=== PATIENT | female | born 1940 | race Hispanic/Latino ===

== ENCOUNTER 2016-06-05 16:14 | Inpatient (IN) | payer MEDICARE, BC ==
[2016-06-05] MEDS ORDERED: Albuterol-Ipratrop 3 mg / 0.5 (3 ml) UD IH STA (17:02)
[2016-06-05] MEDS ORDERED: Azithromycin 500MG/NS 250ml 250 ML IVPB STA (17:05)
[2016-06-05] MEDS ORDERED: cefTRIAXone 1 gm 100 ML IV STA (17:06)
--- NOTE | 2016-06-05 17:43 | ED PDOC ---
Arrival/HPI - General Chief Complaint: Shortness Of Breath Time Seen by Provider: 06/05/16 16:50 - History of Present Illness Narrative History of Present Illness (Text): 06/05/16 17:36 76-year-old female with a history of COPD and smoking, presents the emergency department with progressively worsening shortness of breath. Patient states that this feels similar to her previous COPD exacerbation symptoms. She states that she takes nebulizer treatments at home multiple times a day, but they have been helping her less. Denies fevers or chills, denies dyspnea on exertion, denies chest pain. No other complaints. Past Medical History - Provider Review Nursing Documentation Reviewed: Yes - Infectious Disease Hx of Infectious Diseases: None - Tetanus Immunization Tetanus Immunization: Unknown - Cardiac Hx Cardiac Disorders: Yes (CAD) Hx Congestive Heart Failure: Yes Hx Hypertension: Yes - Pulmonary Hx Chronic Obstructive Pulmonary Disease (COPD): Yes - Neurological Hx Neurological Disorder: No Hx Alzheimer's Disease: No HX Cerebrovascular Accident: No Hx Dementia: No Hx Dizziness: Yes (SYNCOPE) Hx Meningitis: No Hx Migraine: No Hx Parkinson's Disease: No Hx Seizures: No Hx Transient Ischemic Attacks (TIA): No - HEENT Hx HEENT Disorder: Yes Hx Blind: No Hx Cataracts: Yes (removed) Hx Deafness: No Hx Difficulty Chewing: No Hx Epistaxis: No Hx Glaucoma: No Hx Macular Degeneration: No - Renal Hx Renal Disorder: Yes Hx Dialysis: No Hx Kidney Stones: No Hx Neurogenic Bladder: No Hx Pyelonephritis: No Hx Renal Cancer: No Hx Renal Failure: No - Endocrine/Metabolic Hx Endocrine Disorders: No Hx Diabetes Mellitus Type 1: No Hx Diabetes Mellitus Type 2: No Hx Hypothyroidism: No - Hematological/Oncological Hx Blood Disorders: No Hx AIDS: No Hx Anemia: No Hx Cancer: No Hx Chemotherapy: No Hx Cirrhosis: No Hx Hepatitis A: No Hx Hepatitis B: No Hx Hepatitis C: No Hx Metastasis: No Hx Shingles: No Hx Unexplained Bleeding: No - Integumentary Hx Dermatological Disorder: No Hx Basal Cell Carcinoma: No Hx Eczema: No Hx Melanoma: No Hx Psoriasis: No Hx Squamous Cell Carcinoma: No - Musculoskeletal/Rheumatological Hx Musculoskeletal Disorders: Yes Hx Arthritis: Yes Hx Back Pain: No Hx Degenerative Joint Disease: No Hx Falls: Yes Hx Fractures: Yes (right foot, left arm and hand, right shoulder) Hx Gout: No Hx Herniated Disk: No Hx Osteoarthritis: No Hx Osteomyelitis: No Hx Osteoporosis: No Hx Rhabdomyolysis: No Hx Spinal Stenosis: No Other/Comment: fell over dog fx left hand and left arm, fell oob fx r ft casted , clavicular fx, shoulder contusion - Gastrointestinal Hx Gastrointestinal Disorders: Yes Hx Colostomy: No Hx Crohn's Disease: No Hx Diverticulitis: Yes Hx Gall Bladder Disease: No Hx Gastroesophageal Reflux: Yes Hx Gastrointestinal Ulcer: No Hx Ileostomy: No Hx Liver Failure: No Hx Pancreatitis: No HX Swallowing Problems: No - Genitourinary/Gynecological Hx Genitourinary Disorders: No Hx Hematuria: No Hx Incontinence: No Hx Reproductive Disorders: No Hx Sexually Transmitted Diseases: No Hx Urinary Tract Infection: No - Psychiatric Hx Psychophysiologic Disorder: No Hx Anxiety: Yes (xanax) Hx Bipolar Disorder: No Hx Depression: No Hx Emotional Abuse: No Hx Hallucinations: No Hx Panic Disorder: No Hx Post Traumatic Stress Disorder: No Hx Psychosis: No Hx Physical Abuse: No Hx Schizophrenia: No Hx Sexual Abuse: No Hx Substance Use: No - Past Surgical History Past Surgical History: Non-Contributing - Surgical History Hx Appendectomy: Yes Hx Cardiac Catheterization: Yes Hx Cholecystectomy: Yes Hx Coronary Stent: Yes Hx Open Heart Surgery: Yes (1 stent 08/30) Other/Comment: D&C 20years ago - Anesthesia Hx Anesthesia Reactions: No Hx Malignant Hyperthermia: No - Suicidal Assessment Feels Threatened In Home Enviroment: No Family/Social History Family/Social History: Unknown Family HX Smoking Status: Heavy Smoker > 10 Cigarettes Daily Hx Alcohol Use: No Hx Substance Use: No Hx Substance Use Treatment: No Allergies/Home Meds Allergies/Adverse Reactions: Allergies No Known Allergies Allergy (Verified 06/05/16 16:39) Home Medications: Home Meds Medication Instructions Recorded Confirmed Ergocalciferol (Vitamin D2) 100,000 iu PO 2XW #0 09/15/11 12/27/15 [Vitamin D2] Clopidogrel [Plavix] 75 mg PO DAILY 08/05/12 12/27/15 ALPRAZolam [Xanax] 0.25 mg PO PRN PRN 07/12/15 12/27/15 Physical Exam - Physical Exam Narrative Physical Exam (Text): 06/05/16 17:38 - Review of Systems Constitutional: Normal. absent: Fatigue, Weight Change, Fevers Eyes: Normal ENT: denies sore throat, denies tristhmus Respiratory: Shortness of breath. absent: Sputum Cardiovascular: absent: Chest Pain, Palpitations, Syncope Gastrointestinal: Normal. absent: Abdominal Pain, Diarrhea, Nausea, Vomiting Genitourinary: Normal. absent: Dysuria, Frequency, Hematuria, vaginal bleeding Musculoskeletal: Normal. absent: Arthralgias, Back Pain, Neck Pain Skin: no rashes, no erythema Neurological: absent: Focal Weakness Endocrine: Normal Hemo/Lymphatic: Normal Psychiatric: No suicidal or homicidal ideations Physical exam Patient appears age appropriate in no distress, speaking full sentences without difficulty - Systems Exam Head: Present: Atraumatic, Normocephalic Pupils: Present: PERRL Extroacular Muscles: Present: EOMI Conjunctiva: Present: Normal Mouth: Present: Moist Mucous Membranes Neck: Present: Normal Range of Motion. No: MIDLINE TENDERNESS, Paraspinal Tenderness Respiratory/Chest: Present: Expiratory wheezing, Good Air Exchange. No: Respiratory Distress, Accessory Muscle Use, Tachypneic Cardiovascular: Present: Regular Rate and Rhythm, Normal S1, S2, Peripheal Pulses Present. No: Murmurs Abdomen: Present: Normal Bowel Sounds. No: Tenderness, Distention, Peritoneal Signs, Rebound, Guarding Back: Present: Normal Inspection. No: Midline Tenderness, Paraspinal Tenderness Upper Extremity: Present: Normal Inspection. No: Cyanosis, Edema Lower Extremity: Present: Normal Inspection. No: Edema Neurological: Present: GCS=15, Speech Normal, cranial nerves II through XII fully intact with no cerebellar abnormality, neurosensory fully intact. No focal neurological deficits. Skin: Present: Warm, Dry, Normal Color. No: Rashes Lymphatic: Present: OX3, NI, NC Psychiatric: Present: Alert, Oriented x 3, Normal Insight, Normal Concentration Vital Signs Reviewed: Yes Vital Signs Temp Pulse Resp BP Pulse Ox 06/05/16 19:19 19 97 06/05/16 16:38 98.1 F 86 19 131/80 96 Temperature: Afebrile Blood Pressure: Normal Pulse: Regular Respiratory Rate: Normal Appearance: Positive for: Well-Appearing Pain Distress: None Mental Status: Positive for: Alert and Oriented X 3 Medical Decision Making ED Course and Treatment: 06/05/16 17:43 76-year-old female with wheezing, states feels similar to her previous COPD exacerbation symptoms. Case discussed with Dr. Garcia, asked to admit to his service for further workup or management. Patient aware of and agrees with plan. EKG interpreted by ER physician. Normal sinus. No ST-segment elevations. Normal intervals. Chest xray interpreted by ED physician shows no pneumothorax, no cardiomegaly, no infiltrates - RAD Interpretation Radiology Orders: 06/05/16 17:04 CHEST PORTABLE [RAD] Stat - Medication Orders Current Medication Orders: Albuterol/Ipratropium (Duoneb 3 Mg/0.5 Mg (3 Ml) Ud) 3 ml IH Q4H PRN PRN Reason: Shortness of Breath Stop: 06/05/16 21:48 Albuterol/Ipratropium (Duoneb 3 Mg/0.5 Mg (3 Ml) Ud) 3 ml IH TIDRESP LUBA Alprazolam (Xanax) 0.25 mg PO Q6 PRN; Protocol PRN Reason: Anxiety Stop: 06/13/16 00:01 Aspirin (Ecotrin) 81 mg PO DAILY LUBA Atorvastatin Calcium (Lipitor) 20 mg PO HS LUBA Mirtazapine (Remeron) 15 mg PO HS LUBA Oxycodone HCl (Oxycodone Immediate Release Tab) 30 mg PO QID PRN PRN Reason: Pain, moderate (4-7) Pantoprazole Sodium (Protonix Ec Tab) 40 mg PO ACB LUBA Discontinued Medications Albuterol/Ipratropium (Duoneb 3 Mg/0.5 Mg (3 Ml) Ud) 3 ml IH STAT STA Stop: 06/05/16 17:03 Last Admin: 06/05/16 18:00 Dose: 3 ML Azithromycin (Zithromax 500mg In Ns) 250 mls @ 167 mls/hr IVPB STAT STA PRN Reason: Protocol Stop: 06/05/16 18:34 Last Admin: 06/05/16 19:27 Dose: 167 MLS/HR eMAR Start Stop Document 06/05/16 19:27 EKEOO (Rec: 06/05/16 19:27 EKEOO [facility] [place] [id number]) Intravenous Solution Start Date 06/05/16 Start Time 19:27 Ceftriaxone Sodium (Rocephin 1 Gram Ivpb) 100 mls @ 200 mls/hr IV STAT STA PRN Reason: Protocol Stop: 06/05/16 17:35 Last Admin: 03/20/17 18:00 Dose: 200 MLS/HR eMAR Start Stop Document 06/05/16 18:00 REED (Rec: 06/05/16 18:41 REED [id number]) Intravenous Solution Start Date 06/05/16 Start Time 18:00 Methylprednisolone (Solu-Medrol) 125 mg IVP STAT STA Stop: 06/05/16 17:03 Last Admin: 06/05/16 18:00 Dose: 125 MG IVP Administration Document 06/05/16 18:00 [facility] (Rec: 06/05/16 18:40 REED [id number]) Charges for Administration # of IVP Administrations 1 Disposition/Present on Arrival - Present on Arrival Any Indicators Present on Arrival: No History of DVT/PE: No History of Uncontrolled Diabetes: No Urinary Catheter: No History of Decub. Ulcer: No History Surgical Site Infection Following: None - Disposition Have Diagnosis and Disposition been Completed?: Yes Diagnosis: COPD (chronic obstructive pulmonary disease) Disposition: HOSPITALIZED Disposition Time: 16:36 Patient Plan: Admission Patient Problems: Current Active Problems Problem Status Diagnosed COPD (chronic obstructive pulmonary disease) Acute COPD exacerbation Acute Carboxyhemoglobinemia Acute Chest pain Acute Congestive heart failure Acute Condition: FAIR
[2016-06-05] MEDS ORDERED: Albuterol-Ipratrop 3 mg / 0.5 (3 ml) UD IH PRN (17:47)
[2016-06-05 18:20] LABS: ADD MANUAL DIFF? NO
[2016-06-05 18:26] LABS: BASO # 0.02 K/mm3 (0.0-2.0); BASO % 0.3 % (0.0-3.0); EOS # 0.1 (0.0-0.7); EOS % 1.2 % (1.5-5.0); GRAN # 5.71 (1.4-6.5); GRAN % 76.6 % (50.0-68.0); HEMATOCRIT 36.3 % (36.0-48.0); LYMPH # 1.1 (1.2-3.4); LYMPH % 15.1 % (22.0-35.0); MEAN CELL VOLUME 94.8 fL (80.0-105.0); MEAN CORPUSCULAR HGB CONC 31.7 g/dl (31.0-37.0); MEAN PLATELET VOLUME 9.7 fl (7.0-11.0); MONO # 0.5 (0.1-0.6); MONO % 6.8 % (1.0-6.0); PLATELET COUNT 299 10^3/uL (120.0-450.0); WHITE BLOOD COUNT 7.5 10^3/ul (4.5-11.0)
[2016-06-05 18:50] LABS: ALB/GLOB RATIO 1.4 (1.1-1.8); ALKALINE PHOSPHATASE 78 U/L (38-133); ALT/SGPT 24 U/L (7-56); AST/SGOT 39 U/L (15-39); BILIRUBIN,TOTAL 0.4 mg/dL (0.2-1.3); BLOOD UREA NITROGEN 17 mg/dL (7-21); CALCIUM 9.2 mg/dL (8.4-10.5); CARBON DIOXIDE 35 mmol/L (21-33); CHLORIDE 99 mmol/L (98-107); GFR AFRICAN-AMERICAN > 60; GLUCOSE,RANDOM 97 mg/dL (70-110); SODIUM 141 mmol/L (132-148); TOTAL PROTEIN 6.8 g/dL (5.8-8.3)
[2016-06-05 19:02] LABS: TROPONIN I < 0.01 ng/mL
[2016-06-05 19:08] LABS: INR 0.99 (0.93-1.08); PARTIAL THROMBOPLASTIN TIME 25.2 Seconds (23.7-30.8)
[2016-06-05] MEDS ORDERED: oxyCODONE 30 mg Immediate Release Tab PO PRN (19:23)
[2016-06-05 23:33] VITALS: BMI 25.9
[2016-06-06] MEDS ORDERED: levoFLOXacin 500 MG TAB PO STA (07:19)
[2016-06-06] MEDS: Albuterol-Ipratrop 3 mg / 0.5 (3 ml) UD IH SCH ×3 (08:01→20:29)
[2016-06-06] MEDS: Pantoprazole 40 mg EC Tab PO SCH (08:29)
[2016-06-06] MEDS ORDERED: MethylPREDNISolone 40 mg Vial IVP SCH (10:00)
[2016-06-06] MEDS: MethylPREDNISolone 40 mg Vial IVP SCH ×2 (10:14→22:08)
[2016-06-06] MEDS: POLYETHYLENE GLYCOL 3350 17 GM/Dose PACKET PO SCH ×2 (10:14→17:28)
--- NOTE | 2016-06-06 10:50 | RAD ---
HISTORY: cough COMPARISON: Comparison is made to the previous exam dated 12/22/2015 FINDINGS: LUNGS: Hyperinflation of the lungs is again noted. Prominent reticular opacities are again seen. No evidence of new infiltrate or consolidation in the lungs. PLEURA: No significant pleural effusion identified, no pneumothorax apparent. CARDIOVASCULAR: The cardiac silhouette is mildly enlarged. OSSEOUS STRUCTURES: No significant abnormalities. VISUALIZED UPPER ABDOMEN: Normal. OTHER FINDINGS: None. IMPRESSION: No significant interval change compared to the previous study.
--- NOTE | 2016-06-06 12:11 | CON ---
DATE: 06/06/2016 CHIEF COMPLAINT AND HISTORY OF PRESENT ILLNESS: This is a 76-year-old female who was coming into the hospital because she has been having shortness of breath. The patient is homebound. She has advanc ed COPD and is O2 dependent. She has not been able to ambulate well because of her shortness of ursula th. She was advised by to come into the ER last month, but was not able to do so. I spoke wit h the patient's daughter at length, but the patient has been refusing. She is currently an active sm oker. She has shortness of breath with minimal exertion. She denies any chest pain. She does have a cough that is nonproductive. She has no nausea. She has no fevers or chills. She has no chest pa in. She has no focal weakness in the arms or the legs. She is going to be admitted to the hospital for further management. She says she is very fatigued. She does not have a good appetite. She has been slowly declining. REVIEW OF SYSTEMS: All other review of symptoms are within normal limits except as mentioned. ALLERGIES: No known drug allergies. HOME MEDICATIONS: Plavix, Xanax, oxycodone, vitamin D. PAST MEDICAL HISTORY: 1. COPD, O2 dependent. 2. Pulmonary nodules, multiple. 3. Anxiety. 4. Depression. 5. Coronary artery disease. 6. Right carotid artery stenosis with stenting. 7. Neuropathy. 8. Arthritis. PAST SURGICAL HISTORY: Appendectomy and CABG. SOCIAL HISTORY: She is a smoker. She smokes a half a pack per day. She retired from the [employer]. She has 2 children. FAMILY HISTORY: Noncontributory. PHYSICAL EXAMINATION: VITAL SIGNS: Her temperature is 98.6, pulse of 98, blood pressure is 140/70, respirations 20, O2 sat uration is 95%, height is 5 feet, weight is 133 pounds, BMI is 26. GENERAL: Patient lying in bed, flat, and in no apparent distress. HEAD AND NECK EXAM: Atraumatic, normocephalic. Conjunctivae are pink. Throat clear and mouth with moist mucosa. Oropharynx benign. EYES: Extraocular movements are intact. PERRLA. NECK: Supple. No JVD, thyromegaly, or adenopathy. No bruits. HEART: S1 and S2 regular rate and rhythm. No murmurs, rubs, or gallops. LUNGS: She has decreased bilateral air entry. There is mild wheezing. No rales or rhonchi. ABDOMEN: Soft, nontender, nondistended. Bowel sounds are positive in all quadrants. No rebound. No hepatosplenomegaly. EXTREMITIES: No cyanosis, clubbing, or edema. NEURO: No facial asymmetry, tongue is midline, no uvula deviation. Power is 5/5 in upper extremity and 5/5 in lower extremity. Sensation is normal in upper extremity and lower extremity. PSYCH: Awake, alert, oriented x3. No anxiety or depression symptoms. Good insight. Normal affec t. : No CVA tenderness VASCULAR: 2+ pulses in carotid and pedal pulses. SKIN: No erythema or abnormal nodules noted. SPINE: Normal curvature. LYMPHADENOPATHY: No anterior cervical or posterior cervical adenopathy. No inguinal adenopathy. LABORATORY DATA: White count of 7.5, hemoglobin 11.5, INR is 0.9. Sodium is 141, potassium is 4.0. Troponin is 0.01. EKG shows no ST elevations, sinus rhythm. Chest x-ray done shows no signs of infiltrates. ASSESSMENT: 1. Acute chronic obstructive pulmonary disease exacerbation. 2. Frailty. 3. Coronary artery disease. 4. Depression. 5. Anxiety. 6. Chronic obstructive pulmonary disease, home oxygen dependent. 7. Neuropathy. 8. Osteoarthritis. 9. Peripheral arterial disease. 10. Dyslipidemia. 11. Smoking. PLAN: The patient is admitted to the hospital. She is currently on nebulizer treatments. She is re ceiving aspirin. She is going to need evaluation by Dr. Carlos, who is her youth services librarian. The p atshama is on Remeron, this will be continued. She was given steroids yesterday. She is on Xanax. S he is going to be on oxycodone for pain. The patient is on a heart healthy diet. She is going to ne ed physical therapy for evaluation. Most likely she is going to need subacute rehab. I will speak t o the patient's daughter to give her an update on the patient's diagnosis and plan of care. With adv anced COPD, her overall prognosis is guarded. I am not sure what her advanced directives are, but I believe I spoke to her about her advanced directives. Will get palliative care evaluation to be done . Overall, prognosis is guarded. Gerardo Garcia MD cc: [id number] TT: 06/06/2016 12:10:12 Confirmation # [id number] Dictation # [id number] mn
[2016-06-06] MEDS ORDERED: Tiotropium 18 mcg Cap For Inhalation IH SCH (12:15)
--- NOTE | 2016-06-06 12:27 | CON ---
DATE: 06/06/2016 REASON FOR CONSULTATION: Chronic obstructive pulmonary disease. REFERRING PHYSICIAN: Dr. Gerardo Garcia. HISTORY OF PRESENT ILLNESS: The patient is a 76-year-old female with past medical history significant for advanced chronic obstructive pulmonary disease, on home oxygen, positive extensive smoking history--still smokes, coronary artery disease, hypertension, small pulmonary nodules, who presents to [facility] with a 3-day history of worsening shortness of breath at rest, dyspnea on exertion, and cough. The patient denies significant sputum production. The patient also denies chest pain, coughing up of blood, or chest pain -- made worse with deep respirations. There is no history of temperatures , chills or infectious exposure. There is no history of night sweats, weight loss or appetite change prior to the above events. No history of leg or calf pains. No history of syncope or diaphoresis. No history of recent travel or trauma. REVIEW OF SYSTEMS: No history of nausea, vomiting or diarrhea. No acute urinary symptoms. No new neurologic complaints. Rest of the review of systems is negative. ALLERGIES: No known allergies. SOCIAL HISTORY: Positive for extensive tobacco usage--still smokes. No alcohol. FAMILY HISTORY: No inheritable diseases. HOME MEDICATIONS: Include risperidone, prednisone, oxycodone, Xopenex, Remeron , Plavix, Lipitor, aspirin, Xanax. PHYSICAL EXAMINATION: GENERAL: The patient appears comfortable at rest. She is not short of breath. VITAL SIGNS: Temperature is 98.6, pulse is approximately 80, respirations 18, blood pressure 140/70. Oxygen saturation on nasal cannula is 95-96%. HEENT: Normocephalic, atraumatic. NECK: No JVD. CARDIOVASCULAR: Systolic ejection murmur at the lower left sternal border. No S3 gallop. LUNGS: Decreased breath sounds at the bases. Minimal rhonchi. Minimal wheezing. EXTREMITIES: Mild edema. No cyanosis, no clubbing. Calves are nontender to palpation. GASTROINTESTINAL: Abdomen is soft, nontender, nondistended. Bowel sounds are positive. SKIN: No acute rash. NEUROLOGIC: Limited at the present time. PERTINENT LABORATORY DATA: Chest x-ray was done and reviewed. It is not significantly changed from the previous films. CBC: White count 7.5, hemoglobin 11.5, hematocrit 36.3, platelets of 299. Complete metabolic profile : Carbon dioxide 35. Rest of the metabolic profile is within normal limits. IMPRESSION: 1. Acute bronchitis. 2. Advanced chronic obstructive pulmonary disease, on home oxygen. 3. Coronary artery disease. 4. Mild anemia. PLAN: The patient presents to [facility] with a 3-day history of worsening pulmonary symptoms. I did review the x-ray as above. The most recent film is not significantly changed from the previous films. On physical exam, there is mild bronchospasm present. However, there is no significant alveolar arterial gradient. Oxygen saturation on nasal cannula is 95-96%. I will continue with the current nebulizer treatments and decrease the intravenous steroids this morning. Given her age and above diagnoses, I will also start the patient on oral antibiotic therapy. There are no temperatures noted. There is no leukocytosis. The patient does feel better this morning, and is clinically improved -- compared to the past few days. Additional pulmonary intervention will be based on the clinical status of the patient. I will discuss the above with Dr. Garcia. Thank you very much for this pulmonary consultation. Anthony Davis MD cc: [id number] TT: 06/06/2016 12:26:26 Confirmation # [id number] Dictation # [id number] jn MTDD
[2016-06-06] MEDS ORDERED: Tiotropium 18 mcg Cap For Inhalation IH PRN (14:42)
[2016-06-06] MEDS ORDERED: SYMBICORT INH PRN (14:42)
--- NOTE | 2016-06-06 17:21 | US ---
HISTORY: nodules TECHNIQUE: Sonographic evaluation of the thyroid gland. COMPARISON: None. FINDINGS: RIGHT LOBE: Measures 3.7 x 1.2 x 1.2 cm. Normal echotexture and flow. Nodules: None LEFT LOBE: Measures 3.7 x 1.4 x 1.4 cm. Normal echotexture and flow. Nodules: None ISTHMUS: Measures 0.17 cm. Normal echotexture and flow. Nodules: None OTHER FINDINGS: None . IMPRESSION: Unremarkable thyroid sonogram.
--- NOTE | 2016-06-06 18:11 | CARD ---
APPROVED REPORT EKG Measurement Heart [id number] <Conclusion> Normal sinus rhythm Rightward axis Pulmonary disease pattern Abnormal ECG
[2016-06-07 07:52] VITALS: O2SAT 95
[2016-06-07] MEDS: Albuterol-Ipratrop 3 mg / 0.5 (3 ml) UD IH SCH ×3 (07:57→19:11)
--- NOTE | 2016-06-07 08:18 | PN ---
DATE: 06/07/2016 SUBJECTIVE: The patient has no complaints of any chest pain or shortness of breath. She says her br eathing is better. She is getting nebulizer treatments. She has no headaches or dizziness. PHYSICAL EXAMINATION: VITAL SIGNS: Temperature is 97.6, pulse of 110, blood pressure 128/61, respirations 20. GENERAL: The patient comfortable, in no acute distress. HEENT: Anicteric sclerae. Moist mucosa. NECK: No JVD or adenopathy. CARDIAC: S1/S2. No murmurs. No rubs. Regular. RESPIRATORY: Clear to auscultation bilaterally. No wheezes, rales, or rhonchi. Good air entry. ABDOMEN: Bowel sounds are positive, soft, nontender, and nondistended. EXTREMITIES: No edema. Has 1+ pulses. LABORATORY DATA: A thyroid ultrasound was unremarkable. ASSESSMENT: 1. Acute chronic obstructive pulmonary disease exacerbation. 2. Frailty. 3. Coronary artery disease. 4. Depression. 5. Anxiety. 6. Neuropathy. 7. Osteoarthritis. 8. Peripheral arterial disease. 9. Dyslipidemia. 10. Smoking. PLAN: The patient is currently admitted to the hospital for acute COPD. She is getting DuoNeb treat ments. She is on aspirin. The patient is on Levaquin for antibiotics. She is on Lipitor for dyslip idemia. She is on a nicotine patch. The patient is on steroids with 30 mg of Solu-Medrol every 12 h ours. She is on Spiriva. She is on oxycodone for pain management. She is on a heart healthy diet. She is going to be getting physical therapy. I will ask for evaluation by the [facility] to see if she qualifies. If she is willing to go I will send her there for rehab. Gerardo Garcia MD cc: [id number] TT: 06/07/2016 08:17:36 Confirmation # [id number] Dictation # [id number] mn
--- NOTE | 2016-06-07 08:52 | PN ---
DATE: 06/07/2016 PULMONARY NOTE SUBJECTIVE: The patient appears comfortable this morning. She is not short of breath at rest. PHYSICAL EXAMINATION: VITAL SIGNS: Temperature is 97.6. Pulse is approximately 80, respirations 18, blood pressure 128/61. Oxygen saturation on nasal cannula is 98%. HEENT: Normocephalic, atraumatic. No JVD. CARDIOVASCULAR: Systolic ejection murmur at the lower left sternal border. No S3 gallop. LUNGS: Decreased breath sounds at the bases. Less rhonchi. No wheezing this morning. EXTREMITIES: Mild edema. No cyanosis, no clubbing. Calves are nontender to palpation. GASTROINTESTINAL: Abdomen is soft, nontender, nondistended. Bowel sounds are positive. SKIN: No acute rash. NEUROLOGIC: Limited at the present time. IMPRESSION: 1. Acute bronchitis. 2. Advanced chronic obstructive pulmonary disease, on home oxygen. 3. Coronary artery disease. 4. Mild anemia. PLAN: The patient appears comfortable this morning. She is not short of breath at rest. She does state to feeling much better overall. On physical exam, her bronchospasm is certainly less. In addition, the patient's oxygen saturation is now 98% on nasal cannula. I will continue with the current nebulizer treatments and low-dose intravenous steroids (decreased yesterday) for now. The patient also remains on antibiotic therapy. There are no temperatures noted. There is no leukocytosis. Clinical status of the patient is certainly improved - compared to the initial presentation. However, the overall status/prognosis of this patient remains very guarded. She does have very advanced chronic obstructive pulmonary disease, and continues to smoke - in spite of multiple warnings. I will discuss the above with Dr. Garcia. Anthony Davis MD cc: [id number] TT: 06/07/2016 08:51:21 Confirmation # [id number] Dictation # [id number] jn NICK
[2016-06-07] MEDS: Pantoprazole 40 mg EC Tab PO SCH (09:25)
[2016-06-07] MEDS: POLYETHYLENE GLYCOL 3350 17 GM/Dose PACKET PO SCH ×2 (09:25→17:46)
[2016-06-07] MEDS: MethylPREDNISolone 40 mg Vial IVP SCH ×2 (09:27→21:52)
--- NOTE | 2016-06-07 15:36 | CON ---
DATE: 06/07/2016 REASON FOR CONSULTATION: Coronary artery disease, shortness of breath, COPD. HISTORY OF PRESENT ILLNESS: The patient is a 76-year-old female, known case of severe COPD, homeboun d, walks only a few steps and gets shortness of breath. She is also oxygen dependent at home. At th e same time, she also continues to still smoke despite years of stressing her to stop smoking. The p atient admitted with increasing shortness of breath and exacerbation of COPD. She denies any chest p ain or palpitation. The patient known to have coronary artery disease and stent insertion. PAST MEDICAL HISTORY: Positive for severe COPD, hypertension, tobacco abuse, coronary artery disease , status post stent insertion. PREVIOUS CARDIAC WORKUP: The patient had RCA stent on 08/25/2013. At that time, LV ejection fraction was 75%. Following that, patient came back to Emergency Room with chest pain and a code heart was c alled by ER physician. The patient had repeat catheterization on 09/09/2014. It revealed the stent w as patent in RCA while LAD and circumflex were essentially free of significant disease, ejection frac tion 65%-70%, EDP was in the range of 14. There was mild to moderate disease in the ramus intermediu s with ostial about 50% blockage. Subsequently, patient had admission on 07/13/2015. At that time, 2 times a stress test was tried, but both times patient could not lie under the camera and stress test could not be done. On 07/14/2015, patient had an echocardiogram, which showed normal LV size, border line concentric LV hypertrophy, ejection fraction 65%-70% with normal LV systolic function, trace to mild mitral regurgitation, trace aortic regurgitation, mild to moderate tricuspid regurg, RSVP 43 mmH g. PERSONAL HISTORY: The patient denies drinking, but continues to smoke. HOME MEDICATIONS: Included Xanax, Plavix, oxycodone, vitamin D. The patient also had appendectomy. REVIEW OF SYSTEMS: All the systems were reviewed, positives mentioned in the history, others were ne gative. PHYSICAL EXAMINATION: VITAL SIGNS: Blood pressure 153/79, earlier blood pressure was 128/61, respirations 20, pulse 84, te mperature 97.9. HEAD: Normocephalic. EYES: Pupils normal. Conjunctivae slightly pale. NECK: JVP low. Carotid equal. THORAX: AP diameter slightly increased. LUNGS: Bilateral wheezing. CARDIOVASCULAR: S1, S2. ABDOMEN: Soft, no tenderness, no organomegaly. EXTREMITIES: No clubbing, no cyanosis. LABORATORY DATA: WBC 7.5, hemoglobin 11.5, hematocrit 36.3, platelet 299. Sodium 141, potassium 4.0 , BUN 17, creatinine 0.8. AST, ALT normal. Troponin less than 0.01. NT-pro B-natriuretic pep 117. Total protein, albumin normal. Chest x-ray: COPD, prominent reticular opacities were seen. EKG showed sinus rhythm, right axis. DIAGNOSES: Exacerbation of chronic obstructive pulmonary disease, respiratory tract infection, pulmo nary nodules, multiple nodules, anxiety, depression, coronary artery disease, status post angioplasty , stent insertion, arthritis, tobacco abuse, anemia. PLAN: The patient's symptoms are related to exacerbation of chronic obstructive pulmonary disease, r espiratory tract infection, so we will continue aspirin 81 mg daily. The patient on Levaquin 250 mg p.o. daily, Lipitor 20 mg p.o. daily, nicotine patch daily, Protonix 40 daily, Solu-Medrol 30 mg IV q . 12 hours, Xanax. Clinically, cardiac status is stable. The patient has no anginal symptoms. We w ill follow with you. Angela Mcknight MD cc: [id number] TT: 06/07/2016 15:36:07 Confirmation # [id number] Dictation # [id number] en
[2016-06-08 08:02] VITALS: BP 179/88; PULSE 74; RESP 21; TEMP 97.6
[2016-06-08] MEDS: Albuterol-Ipratrop 3 mg / 0.5 (3 ml) UD IH SCH ×2 (08:23→13:36)
[2016-06-08] MEDS: POLYETHYLENE GLYCOL 3350 17 GM/Dose PACKET PO SCH (09:20)
[2016-06-08] MEDS: Pantoprazole 40 mg EC Tab PO SCH (09:21)
--- NOTE | 2016-06-08 09:30 | PN ---
DATE: 06/08/2016 SUBJECTIVE: The patient appears very comfortable at rest. She is not short of breath. PHYSICAL EXAMINATION: VITAL SIGNS: Temperature is 97.6, pulse 74, respirations 18/20, blood pressure 179/88. Oxygen saturation on nasal cannula is 95%. HEENT: Normocephalic, atraumatic. No JVD. CARDIOVASCULAR: Systolic ejection murmur at the lower left sternal border. No S3 gallop. LUNGS: Clear bilaterally this morning. EXTREMITIES: Mild edema. No cyanosis, no clubbing. Calves are nontender to palpation. GASTROINTESTINAL: Abdomen is soft, nontender, nondistended. Bowel sounds are positive. SKIN: No acute rash. NEUROLOGIC: Limited at the present time. IMPRESSION: 1. Acute bronchitis. 2. Advanced chronic obstructive pulmonary disease, on home oxygen. 3. Coronary artery disease. 4. Mild anemia. PLAN: The patient appears very comfortable this morning. She is not short of breath at rest. She does state to feeling much better overall. On physical exam, her lungs are now clear. In addition, there is no significant alveolar- arterial gradient. I will continue with the current nebulizer treatments and change to oral steroids this morning. The patient remains on antibiotic therapy. There are no temperatures noted. There is no leukocytosis. Cardiology evaluation is noted. Clinical status of the patient is significantly improved -- compared to the initial presentation. However, again , the overall status/prognosis of this patient does remain very guarded. The patient is for possible transfer to the transitional unit later today. I will discuss the above with Dr. Garcia. Anthony Davis MD cc: [id number] TT: 06/08/2016 09:29:38 Confirmation # [id number] Dictation # [id number] en MTDD
--- NOTE | 2016-06-08 12:36 | DS ---
SUBJECTIVE: The patient has no complaints of chest pain. She says her shortness of breath has impro estee. She still feels weak and unsteady. She has no complaints of any headaches. She was initially admitted to the hospital because of COPD exacerbation. She had a thyroid ultrasound that was normal. She has no complaints. She says she is feeling better. PHYSICAL EXAMINATION: VITAL SIGNS: Temperature is 97.2, pulse is 75, blood pressure 166/83, respirations 12. GENERAL: The patient comfortable, in no acute distress. HEENT: Anicteric sclerae. Moist mucosa. NECK: No JVD or adenopathy. CARDIAC: S1/S2. No murmurs. No rubs. Regular. RESPIRATORY: Clear to auscultation bilaterally. No wheezes, rales, or rhonchi. Good air entry. ABDOMEN: Bowel sounds are positive, soft, nontender, and nondistended. EXTREMITIES: No edema. Has 1+ pulses. LABORATORY DATA: White count of 7.5 and creatinine 0.8. ASSESSMENT: 1. Advanced chronic obstructive pulmonary disease. 2. Frailty. 3. Coronary artery disease. 4. Depression. 5. Anxiety. 6. Neuropathy. 7. Osteoarthritis. 8. Peripheral arterial disease. 9. Dyslipidemia. 10. Smoking. PLAN: The patient was seen by Dr. Mcknight. She does not feel that there are any cardiac issues at is point. The patient had a stress test in the past. The last echo is 06/2015 with a good EF. The patient was seen by physical therapy. They have advised the patient may need TCU or subacute rehab. I did talk to the patient and the daughter yesterday and they are in agreement. The patient is chika g to continue with nebulizer treatment. She is on Levaquin for antibiotics. She is on Lipitor for d yslipidemia. She is on a nicotine patch for her smoking. She is on Solu-Medrol IV. She is going to continue Xanax as needed. She is on oxycodone for pain. She is on a heart healthy diet. Gerardo Garcia MD cc: [id number] TT: 06/08/2016 12:36:06 an
--- NOTE | 2016-06-08 13:47 | CP.PCM.CON ---
History of Present Illness - History of Present Illness History of Present Illness: Palliative consult requested by Dr Bruce Garcia Reason: Advance care planning 76 year old female presented to ED with increasing shortness of breath over the past several days. She also has a non productive cough. PMHx:end stage COPD, pulmonary nodules,anxiety,depression,CAD,right carotid artery stenosis, peripheral neuropathy. Social History: Current smoker, denies alcohol ro drug use Review of Systems: She of dyspnea on exertion and left chest wall pain, all other systems negative. Advance Care Planning: She has a Living Will but can not find it. Tabitha is DNR/ DNI. Past Patient History - Infectious Disease Hx of Infectious Diseases: None - Tetanus Immunizations Tetanus Immunization: Unknown - Past Social History Smoking Status: Heavy Smoker > 10 Cigarettes Daily - CARDIAC Hx Cardiac Disorders: Yes Hx Congestive Heart Failure: Yes Hx Hypercholesterolemia: Yes Hx Hypertension: Yes - PULMONARY Hx Chronic Obstructive Pulmonary Disease (COPD): Yes - NEUROLOGICAL Hx Neurological Disorder: Yes (syncope) - HEENT Hx Cataracts: Yes (removed) - RENAL Hx Chronic Kidney Disease: Yes Hx Dialysis: No Hx Kidney Stones: No Hx Neurogenic Bladder: No Hx Pyelonephritis: No Hx Renal (Kidney) Cancer: No Hx Renal Failure: No - ENDOCRINE/METABOLIC Hx Endocrine Disorders: No Hx Diabetes Mellitus Type 1: No Hx Diabetes Mellitus Type 2: No Hx Hypothyroidism: No - HEMATOLOGICAL/ONCOLOGICAL Hx Blood Disorders: No Hx AIDS: No Hx Anemia: No Hx Cancer: No Hx Chemotherapy: No Hx Cirrhosis: No Hx Hepatitis A: No Hx Hepatitis B: No Hx Hepatitis C: No Hx Metastesis: No Hx Shingles: No Hx Unexplained Bleeding: No - INTEGUMENTARY Hx Dermatological Problems: No Hx Basil Cell: No Hx Eczema: No Hx Melanoma: No Hx Psoriasis: No Hx Squamous Cell: No - MUSCULOSKELETAL/RHEUMATOLOGICAL Hx Arthritis: Yes - GASTROINTESTINAL Hx Diverticulitis: Yes Hx Gastroesophageal Reflux: Yes - GENITOURINARY/GYNECOLOGICAL Hx Genitourinary Disorders: No Hx Hematuria: No Hx Incontinence: No Hx Reproductive Disorders: No Hx Sexually Transmitted Disorders: No Hx Urinary Tract Infection: No - PSYCHIATRIC Hx Substance Use: No - SURGICAL HISTORY Hx Surgeries: Yes Hx Appendectomy: Yes Hx Cardiac Catheterization: Yes Hx Cholecystectomy: Yes Hx Coronary Stent: Yes - ANESTHESIA Hx Anesthesia Reactions: No Hx Malignant Hyperthermia: No Meds Allergies/Adverse Reactions: Allergies Allergy/AdvReac Type Severity Reaction Status Date / Time No Known Allergies Allergy Verified 06/05/16 16:39 - Medications Medications: Current Medications Albuterol/Ipratropium (Duoneb 3 Mg/0.5 Mg (3 Ml) Ud) 3 ml IH TIDRESP [facility] Last Admin: 06/08/16 13:36 Dose: 3 ml Alprazolam (Xanax) 0.25 mg PO Q6 PRN; Protocol PRN Reason: Anxiety Stop: 06/13/16 00:01 Last Admin: 06/08/16 01:20 Dose: 0.25 mg Aspirin (Ecotrin) 81 mg PO DAILY [facility] Last Admin: 06/08/16 09:19 Dose: 81 mg Atorvastatin Calcium (Lipitor) 20 mg PO HS [facility] Last Admin: 06/07/16 21:51 Dose: 20 mg Home Med (Home Med) 1 unit INH BID PRN PRN Reason: Shortness of Breath Levofloxacin (Levaquin) 250 mg PO DAILY [facility] Last Admin: 06/08/16 09:19 Dose: 250 mg Mirtazapine (Remeron) 15 mg PO HS [facility] Last Admin: 06/07/16 21:52 Dose: 15 mg Nicotine (Nicoderm Cq) 1 patch TD DAILY [facility] Last Admin: 06/08/16 09:20 Dose: 1 patch Oxycodone HCl (Oxycodone Immediate Release Tab) 30 mg PO QID PRN PRN Reason: Pain, moderate (4-7) Pantoprazole Sodium (Protonix Ec Tab) 40 mg PO ACB [facility] Last Admin: 06/08/16 09:21 Dose: 40 mg Polyethylene Glycol (Miralax) 17 gm PO BID [facility] Last Admin: 06/08/16 09:20 Dose: 17 gm Prednisone (Prednisone Tab) 40 mg PO DAILY [facility] Last Admin: 06/08/16 09:20 Dose: 40 mg Tiotropium [place] (Spiriva) 18 mcg IH DAILY PRN PRN Reason: Shortness of Breath Last Admin: 06/07/16 18:13 Dose: 18 mcg Physical Exam - Constitutional Appears: Chronically Ill - Head Exam Head Exam: NORMAL INSPECTION - Eye Exam Eye Exam: Normal appearance, PERRL - ENT Exam ENT Exam: Mucous Membranes Moist, Normal Oropharynx - Neck Exam Neck exam: Positive for: Normal Inspection - Respiratory Exam Respiratory Exam: Decreased Breath Sounds, Rhonchi Additional comments: dyspnea on exertion - Cardiovascular Exam Cardiovascular Exam: REGULAR RHYTHM, +S1, +S2 - GI/Abdominal Exam GI & Abdominal Exam: Normal Bowel Sounds, Soft - Extremities Exam Extremities exam: Positive for: pedal edema - Neurological Exam Neurological exam: Alert, Oriented x3 - Skin Skin Exam: Dry, Pallor - Additional Findings Additional findings: Palliative performance scale rating 40 % Results - Vital Signs Recent Vital Signs: Last Vital Signs Temp 97.6 F 06/08/16 08:02 Pulse 74 06/08/16 08:02 Resp 21 06/08/16 08:02 BP 179/88 H 06/08/16 08:02 Pulse Ox 95 06/08/16 08:02 - Labs Result Diagrams: 06/05/16 18:05 06/05/16 18:05 Assessment & Plan - Assessment and Plan (Free Text) Assessment: 76 year old female admitted with acute COPD exacerbation. She has multiple comorbidities. She is a current smoker. I spoke with patient about her understanding of illness. Daughter is present at bedside. Patient e understands that pulmonary status will likely continue to decline. She states that she has a Living Will but she can't find it Daughter does not have a copy either. Patient states she does not want to be intubated nor does she want CPR if her condition worsens. POLST explained in detail, questions answered. Patient competed POLST: DNR/DNI> A copy is placed in chart. Time spent in discussion with patient and daughter regarding goals of care and advance care planning 30 minutes Plan: POLST: DNR/DNI
--- NOTE | 2016-06-08 16:10 | IP.NPCORE ---
COPD Progress Note - COPD Progress Note Plan to assess at outpatient follow up: Yes Symptoms:: Increase in Dyspnea, Cough Initial CXR:: normal Oxygen Saturation/Pulse Oximetry:: 95 Nebulizers Q2-4 hrs:: Duonebs/Albuterol Therapy Antibiotics (Name/Dose/Frequency):: levaquin PO 250 mg daily Systemic Steroids w/ methylprednisolone Name/Dose/Frequency:: solumedrol 30 iv q12 Oxygen Delivery Method: Nasal Cannula Smoking cessation counseling all stages copd exacerbation: Yes (patient instructed multiple times on smoking cessation)
--- NOTE | 2016-06-08 19:56 | PN ---
DATE: 06/08/2016 The patient is in room 361, bed 1. REASON FOR CONSULTATION: Coronary artery disease, shortness of breath, COPD. HISTORY OF PRESENT ILLNESS: The patient is a 76-year-old female, known case of severe COPD, homeboun d, walks a few steps and get shortness of breath. She is also oxygen dependent at home. At the same time she continues to still smoke despite years of advising her to stop smoking. The patient is was admitted with increasing shortness of breath with exacerbation of COPD. Denies any chest pain or pa lpitation. The patient known to have coronary artery disease, history of angioplasty and stent inser tion in the past, previous cardiac workup has been discussed in detail in our consultation of 06/08/19 17. The patient sitting in bed, denies any chest pain or palpitation at present. She says when she walks she gets shortness of breath. PHYSICAL EXAMINATION: VITAL SIGNS: Blood pressure 117/88, respirations 21, pulse 74, temperature 97.6. HEAD: Normocephalic. EYES: Pupils normal. Conjunctivae slightly pale. NECK: JVP low. Carotid equal. THORAX: AP diameter is slightly increased. LUNGS: Wheezing sounds. CARDIOVASCULAR: S1, S2. ABDOMEN: Soft, nontender, no organomegaly. EXTREMITIES: No clubbing, no cyanosis. LABORATORY DATA: WBC 7.5, hemoglobin 11.5, hematocrit 36.3, platelet 299. Sodium 141, potassium 4.0 , BUN 17, creatinine 0.8. AST, ALT, total protein, albumin and troponin normal. DIAGNOSES: Exacerbation of chronic obstructive pulmonary disease, respiratory tract infection, pulmo nary nodules, multiple nodules, anxiety, depression, coronary artery disease, status post angioplasty and stent insertion, arthritis, tobacco abuse, anemia. PLAN: Clinically, cardiac status is stable and we will continue aspirin 81 mg daily, Levaquin 250 p. o. daily, Lipitor 20 daily, nicotine patch daily, Protonix 40 daily. Clinically, patient's cardiac s tatus is stable. The patient does not have any chest pain suggestive of any angina. We will continu e present therapy and again stressed to the patient in front of her daughter to stop smoking and we w ill follow with you. Angela Mcknight MD cc: [id number] TT: 06/08/2016 19:56:35 Confirmation # [id number] Dictation # [id number]
== END 2016-06-08 15:48 | DRG 192 ==
LOC: ED 16:14 → ERH 17:47 → 3RNO 20:49
PROVIDERS: ADMIT Internal Medicine Nephrology; ATTEND Internal Medicine Nephrology
DX: J44.1 Chronic obstructive pulmonary disease with (acute) exacerbation (principal); G62.9 Polyneuropathy, unspecified; J44.0 Chronic obstructive pulmonary disease with (acute) lower respiratory infection; J20.9 Acute bronchitis, unspecified; R54 Age-related physical debility; F32.9 Major depressive disorder, single episode, unspecified; I25.10 Atherosclerotic heart disease of native coronary artery without angina pectoris; F41.9 Anxiety disorder, unspecified; M19.90 Unspecified osteoarthritis, unspecified site; I73.9 Peripheral vascular disease, unspecified; E78.5 Hyperlipidemia, unspecified; F17.210 Nicotine dependence, cigarettes, uncomplicated; D64.9 Anemia, unspecified; R91.8 Other nonspecific abnormal finding of lung field; I08.3 Combined rheumatic disorders of mitral, aortic and tricuspid valves; I65.21 Occlusion and stenosis of right carotid artery; Z66 Do not resuscitate; Z99.81 Dependence on supplemental oxygen; Z95.5 Presence of coronary angioplasty implant and graft